=== PATIENT | female | born 1995 | race Caucasian/White ===

== ENCOUNTER 2016-06-02 21:10 | Emergency (ER) | payer SELFPAY ==
[~2016-06-02] VITALS: Ht 170.2 cm; Wt 61.2 kg
[2016-06-02 21:18] VITALS: BP 119/94
--- NOTE | 2016-06-03 01:24 | NUR ---
PATIENT LEFT WITHOUT BEING SEEN BY DR. MCKAY. NO FURTHER CARE PROVIDED FOR PATIENT.
== END 2016-06-03 01:24 | disposition left against medical advice (07) ==
LOC: MED 21:10
DX: J02.9 Acute pharyngitis, unspecified (principal); Z53.21 Procedure and treatment not carried out due to patient leaving prior to being seen by health care provider